=== PATIENT | male | born 1955 | race African-American/Black ===

== ENCOUNTER 2023-11-01 15:22 | Emergency (ER) | payer MEDICARE, BC, SELFPAY ==
[2023-11-01 15:24] VITALS: BP 144/98; PULSE 84; RESP 18; TEMP 37; O2SAT 96; BMI 32.0
[2023-11-01] MEDS: 0.9% Normal Saline (1000mL) 1,000 ML 999 ML IV (15:48)
[2023-11-01] MEDS: Lidocaine 1% (20 ml mdv) 20 ML Vial INFILT (15:50)
[2023-11-01 15:54] LABS: Absolute Lymphocyte Count 1.14 X10^3/uL (0.83-4.51); Basophil# 0.03 X10^3/uL; Basophil% 0.4 % (0-1); Eosinophil# 0.01 X10^3/uL; Eosinophils% 0.1 % (0-5); Hematocrit 41.4 % (40-54); Hemoglobin 13.7 g/dL (13.0-16.5); Lymphocyte # 1.14 X10^3/ul (0.83-4.51); Lymphocyte % 14.5 % (19-41); Mean Corp Hgb Conc 33.1 g/dL (32-36); Mean Corpuscular Hgb 30.1 pg (27.0-32.0); Mean Platelet Vol. 10.8 fl (6.2-12.0); Monocyte# 0.62 X10^3/uL; Monocyte% 7.9 % (0-10); NRBC Flagged by Analyzer 0 % (0-5); Neutrophil # 6.01 X10^3/uL (2.7-7.7); Neutrophil % 76.3 % (47-70); Platelet Count 191 K/mm3 (150-450); RBC Distribution Width SD 47.3 fl (35.1-43.9); Red Blood Count 4.55 M/mm3 (4.6-6.2); White Blood Count 7.9 K/mm3 (4.4-11.0)
--- NOTE | 2023-11-01 15:57 | EX.ED.UPPERE ---
HPI History of Present Illness Chief Complaint: Upper Extremity Injury Narrative Narrative: 68-year-old male presenting with right wrist pain. He states that started being warm last evening and tender. It is more swollen today. He has a history of a problem in his right wrist and states several months ago he had a MRI performed which showed degenerative changes. He is never had surgery on it. Patient was at urgent care today where they told him he had 101.6 fever although the patient had noted a fever at home and he had not had chills or sweats. He has not had nausea or vomiting. Of note he did have a biopsy today of his prostate and was told if he develops a fever he should go to the ER. He states initially after the biopsy he had a little bit of blood tingeing in his urine but he has not had any more any has had dysuria. On arrival to the ER he has no fever and his temperature is 98.6 temp orally and it is 99 1 orally. He has not taken any Tylenol or ibuprofen that would mask a fever. He feels otherwise well other than his wrist hurts. He denies any trauma. PFSH PFSH Home Medications hydrocodone-acetaminophen 5-325mg 5mg-325mg 1 tab PO Q6H PRN PRN Pain 3 days #10 TABLETS 11/01/23 [Rx Last Taken Unknown] methylprednisolone 4 mg tablets in a dose pack (Medrol (Aldo)) See Rx Instructions PO .COMPLEX #21 tabs 11/01/23 [Rx Last Taken Unknown] Allergy/AdvReac Type Severity Reaction Status Date / Time Penicillins Allergy PT UNSURE Verified 11/01/23 15:24 OF REACTION Social History Smoking Status: Never smoker ROS ROS ED Constitutional Constitutional ED: Denies chills, fever(s) or sweats Eyes Eyes: Denies blurry vision or change in vision ENT ENT ED: Denies ear pain or sore throat Cardiovascular Cardiovascular: Denies chest pain, palpitations or racing heartbeat Respiratory/Chest Respiratory/Chest: Denies cough, dyspnea or sputum Gastrointestinal Gastrointestinal: Denies abdominal pain, constipation, diarrhea, nausea or vomiting Genitourinary Genitourinary ED: Denies dysuria, hematuria or urinary frequency Musculoskeletal Musculoskeletal: Reports other Details: Right wrist pain and swelling ; Denies arthralgias, myalgias or neck pain Integumentary Denies abscess, Abrasions or rash Neurologic Neurologic: Denies headache(s), paresthesias or weakness Psychiatric Psychiatric: Denies anxiety, depression, suicidal ideation or suicidal thoughts Endocrine Endocrinology: Denies polydipsia or polyuria EXAM Physical Exam Const Vital Signs: 11/01/23 15:24 Temperature 98.6 F Temperature Source Temporal Pulse Rate 84 Respiratory Rate 18 Blood Pressure 144/98 H Blood Pressure Mean 113 Pulse Ox 96 Oxygen Delivery Method Room Air Positive well nourished HEENT Reports moist mucous membranes normocephalic and atraumatic Eyes PERRL Neck full ROM Cardio regular rate and regular rhythm GI non-tender Extremity Extremity Narrative: Tenderness and swelling over the right wrist. Patient does not want to move his wrist in flexion and/or extension and only moves his wrist short amount. He does wiggle his fingers and states this gives him relief of the pain. No numbness noted in the fingers of the right hand. He does have increased warmth overlying the right wrist as well. Neuro oriented x3 and CN's II-XII intact bilaterally Sensorium / Orientation: alert Motor Exam: strength 5/5 throughout Psych mental status grossly normal Mood & Affect: Negative for anxious or tearful MDM MDM MDM Narrative Medical decision making narrative: Patient presenting with right wrist pain. Reportedly had a fever but he does not have one here and he has not taken anything that would mask a fever. After discussion of this we will check a urinalysis to make sure he does have UTI to his biopsy this morning. We will also check COVID, flu, RSV. Will check CBC to assess his white blood cell count and hemoglobin. Will check a BMP to assess his renal function and electrolytes. ESR and CRP will be obtained as inflammatory markers. IV line was established. Right wrist arthrocentesis: Right wrist was cleaned and prepped in a sterile fashion. Wrist was anesthetized with 3 cc of lidocaine without epinephrine. Good anesthesia achieved. 18-gauge needle was introduced just distal to the radius and just ulnar to the anatomic snuffbox. Approximately 2 cc of turbid fluid was aspirated from the right wrist. Patient tolerated procedure well. Dressing was applied. Patient CBC shows a normal white blood cell count at 7.9. Hemoglobin 13.7. Platelets are normal at 191. BMP is unremarkable really with exception of a glucose of 158. No anion gap. CRP is 30.2 and ESR is normal at 18. Synovial fluid was sent over immediately as it was handed to the nurse in the room after the arthrocentesis and it was sent directly to the lab. After over an hour of waiting for the synovial fluid analysis I did call micro at this point they stated that due to the small amount of blood in the synovial fluid it clotted off and the crystals could not be obtained. The Gram stain yielded white blood cells 3+ and red blood cells 1+. Culture is sent. Attempted to call orthopedics however there is nobody on-call at [facility] for orthopedic follow-up. I spoke with the patient about the issue with the synovial fluid and he states he has seen Dr. Green at [facility] before when he had the issue with his wrist and the MRI showed a scapholunate dissociation in the x-ray today on my interpretation shows a similar finding without a bunch of degenerative changes either. Radiology interprets this and agrees. We will try to reach out to him. 6:21 PM assistant secretary is told me that he is not on-call but he has not physician is on-call for him and we will try to reach out to this physician. I was able to reach out and speak with Dr. Green. He was able to call back and he states he remembers the patient and remembers that he had scapholunate dissociation and felt very highly that the fluid in his wrist was likely gout related as the patient has no history of any kind of drug abuse or other red flags. He also has a history of gout. He he recommended a Medrol Dosepak and he can follow-up with him in the office this week for repeat evaluation. He also recommended that the patient had any issues with his wrist that he should come to [facility] where he can be seen by him or his partners. This was all referred to the patient. He was given a dose of Solu-Medrol here in the ED. He was given a Medrol Dosepak and he was given [place] for pain at home. Return precautions were discussed. Impression: 1. Right wrist pain and swelling 2. History of gout Lab Data Labs: Laboratory Results - last 24 hr 11/01/23 15:50 WBC 7.9 RBC 4.55 L Hgb 13.7 Hct 41.4 MCV 91.0 MCH 30.1 MCHC 33.1 RDW Std Deviation 47.3 H RDW Coeff of Malachi 14.0 Plt Count 191 MPV 10.8 Immature Gran % (Auto) 0.800 Neut % (Auto) 76.3 H Lymph % (Auto) 14.5 L [place] % (Auto) 7.9 Eos % (Auto) 0.1 Baso % (Auto) 0.4 Absolute Neuts (auto) 6.0 Absolute Lymphs (auto) 1.14 Nucleated RBC % 0 Discharge Plan Triage Chief Complaint: Upper Extremity Injury Other Complaint: Fever ED Provider: Aron Aldridge Dx/Rx/DC Orders Instructions: ED Gout Prescriptions: New methylprednisolone [Medrol (Aldo)] 4 mg tablets,dose pack See Rx Instructions .ROUTE .COMPLEX Qty: 21 0RF Rx Instructions: for 6 days hydrocodone-acetaminophen 5-325 mg tablet 1 tab PO Q6H PRN PRN (Reason: Pain) 3 Days Qty: 10 0RF Primary Care Provider: Néstor Brown Referrals: Néstor Brown MD [Primary Care Provider] - Disposition Disposition: Home, Self Care Discharge Date/Time: 11/01/23 19:16
[2023-11-01 16:04] LABS: Erythrocyte Sedimentation Rate 18 mm/hr (0-20)
[2023-11-01] MEDS: Ondansetron 4 MG/2 ML Vial IV (16:08)
[2023-11-01 16:09] LABS: Anion Gap 4 (5-15); BUN 17 mg/dL (7-18); BUN/Creat Ratio 17.3 RATIO (10-20); Calcium,Total 9.3 mg/dL (8.5-10.1); Chloride 104 mmol/L (98-107); Creatinine, Serum 0.98 mg/dL (0.70-1.30); EST Glomerular Filtration Rate 80 mL/min (>60); Est Glom Filt Rate - Afr Amer 97 mL/min (>60); Estimated Creatinine Clearance 86.04 ml/min; Glucose 158 mg/dL (74-106); Potassium 3.7 mmol/L (3.5-5.1); Sodium Level 139 mmol/L (136-145)
[2023-11-01] MEDS: Morphine 4 MG/ML Syringe IV (16:09)
--- NOTE | 2023-11-01 16:10 | RAD_ITS ---
INDICATION: pain EXAMINATION/TECHNIQUE: X-RAY - RIGHT XR Wrist Min 3 Views COMPARISON: None. 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 No blastic or lytic lesions. Scattered degenerative changes. There is soft tissue swelling of the wrist. RAD/Wrist min 3 Views IMPRESSION: Scapholunate dissociation. Correlate with history of trauma. Consider CT. Electronically Signed: Scotty Dorado MD at 17:21 EDT ,
[2023-11-01 16:48] LABS: CRYSTALS, BODY FLUID See PATH REV; Source- Body Fluid SYNOVIAL
[2023-11-01 16:49] LABS: Body Fluid QC Type(s) BF1Q
[2023-11-01 16:50] LABS: Bacteria 0 SEEN /hpf (None Seen); Mucous, Urine 0 SEEN /hpf (<or=2+); White Blood Cells 0 SEEN /hpf (0-5)
[2023-11-01 16:57] LABS: Color, Urine Yellow (Yellow); Glucose, Dipstick Normal (Normal); Ketone-Dipstick Negative (Negative); Leukocyte Esterase-Dipstick Negative /ul (Negative); Nitrite-Dipstick Negative (Negative); Occult Blood-Urine 250 /ul (Negative); Protein-Dipstick 30 mg/dl (Negative); Specific Gravity, Urine 1.015 (1.002-1.030); Urine Bilirubin Dipstick Negative (Negative); Urine Clarity Sl. Cloudy (Clear); Urine Urobilinogen Normal (Normal)
[2023-11-01 17:17] LABS: Red Blood Cells-Urine 50-100 SEEN /hpf (0-5); Squamous Epithelial Cells - UA 0-5 SEEN /hpf (0-5)
[2023-11-01 17:23] VITALS: BP 141/84; PULSE 74; RESP 18; O2SAT 98
--- NOTE | 2023-11-01 18:17 | NURSING ---
PAGED CHAIN CARRI[employer] DR FOR DR TYLER MARROQUIN
[2023-11-01] MEDS: MethylPREDNISolone 125 MG/2 ML Vial IV (19:09)
[2023-11-01 19:15] VITALS: BP 144/80; PULSE 87; RESP 16; TEMP 37.1; O2SAT 96
[2023-11-02 15:18] LABS: Pathologist Review Reviewed
== END 2023-11-01 19:16 | disposition home or self-care (01) ==
PROVIDERS: Emergency Medicine; Emergency Provider Student in an Organized Health Care Education/Training Program; PCP Internal Medicine; Visit Provider Student in an Organized Health Care Education/Training Program
DX: M25.531 Pain in right wrist (principal)
CPT/HCPCS: 73110; 80048; 81001; 85025; 85652; 86140; 87070; 87075; 87205; 87631; 89060; 96361; 96374; 96375; 99284; J7030; A4216; J2405